=== PATIENT | male | born 1975 | race Caucasian/White ===

== ENCOUNTER 2020-09-07 19:25 | Outpatient (REF) | payer OTHER, SELFPAY ==
--- NOTE | 2020-09-07 19:45 | MR_ITS ---
MR CERVICAL SPINE WITHOUT IV CONTRAST CLINICAL INFORMATION: Strain injury. Persisting weakness/numbness. COMPARISON: Cervical spine radiographs 08/15/2020. TECHNIQUE: MRI of the cervical spine was obtained using routine sequences without contrast. FINDINGS: Cervical alignment is maintained. The vertebral body heights are preserved. There is moderate disc volume loss at C4-C5 and C5-C6 and there is mild disc volume loss at C6-C7. Modic type I endplate signal changes at C4-C5, C5-C6, and C6-C7. There is no additional bone marrow edema. Craniocervical junction is unremarkable. The partially imaged intracranial compartment is unremarkable. Fatty marrow conversion throughout the C4, C5, C6, and upper aspect of the C7 vertebral bodies. Major ligaments are intact. C2-C3: Posterior disc contour is normal. No central canal stenosis and no foraminal stenosis. C3-C4: Disc osteophyte mildly narrows the central canal. Uncovertebral joint hypertrophy and hypertrophic facet arthropathy result in moderate left foraminal stenosis. C4-C5: Disc osteophyte mildly narrows the central canal. Uncovertebral joint hypertrophy and hypertrophic facet arthropathy result in moderate to severe left and moderate right foraminal stenosis. C5-C6: Disc osteophyte and ligamentum flavum thickening result in mild central canal stenosis. Uncovertebral joint hypertrophy and hypertrophic facet arthropathy result in severe right and mild left foraminal stenosis. C6-C7: Disc osteophyte mildly narrows the central canal. Uncovertebral joint hypertrophy and hypertrophic facet arthropathy result in moderate to severe right-sided foraminal stenosis. C7-T1: Posterior disc contour is normal. Uncovertebral joint hypertrophy and hypertrophic facet arthropathy result in mild to moderate left-sided foraminal stenosis. IMPRESSION: Multilevel cervical spondylosis. Multifactorial degenerative changes result in varying degrees of moderate to severe foraminal stenosis throughout the cervical spine as described. No severe central canal stenosis.
== END 2020-09-07 19:26 | disposition home or self-care (01) ==
LOC: HO.MRI 19:25
PROVIDERS: Visit Provider Internal Medicine
DX: S16.1XXA Strain of muscle, fascia and tendon at neck level, initial encounter (principal); R53.1 Weakness; R20.0 Anesthesia of skin; X58.XXXA Exposure to other specified factors, initial encounter; Y93.9 Activity, unspecified; Y92.9 Unspecified place or not applicable; Y99.9 Unspecified external cause status
CPT/HCPCS: 72141

== ENCOUNTER → 2020-09-09 15:03 | Outpatient (BNVA) | payer OTHER, SELFPAY | PROVIDERS: Visit Provider Physician Assistant Medical | DX: Z13.89 Encounter for screening for other disorder (principal) | CPT/HCPCS: 99213 ==

== ENCOUNTER → 2020-09-16 15:22 | Outpatient (BNVA) | payer OTHER, SELFPAY | PROVIDERS: Visit Provider Physician Assistant Medical | DX: Z13.89 Encounter for screening for other disorder (principal) | CPT/HCPCS: 99213 ==

== ENCOUNTER → 2020-09-30 13:31 | Outpatient (BNVA) | payer OTHER, SELFPAY | PROVIDERS: Visit Provider Physician Assistant Medical | DX: S29.012D Strain of muscle and tendon of back wall of thorax, subsequent encounter (principal); X58.XXXD Exposure to other specified factors, subsequent encounter | CPT/HCPCS: 99213 ==

== ENCOUNTER → 2020-10-12 13:49 | Outpatient (BNVA) | payer OTHER, SELFPAY | PROVIDERS: Visit Provider Physician Assistant Medical | DX: M54.2 Cervicalgia (principal); G56.22 Lesion of ulnar nerve, left upper limb | CPT/HCPCS: 99213 ==

== ENCOUNTER → 2020-10-31 14:49 | Outpatient (BNVA) | payer OTHER, SELFPAY | PROVIDERS: Visit Provider Physician Assistant | DX: Z76.89 Persons encountering health services in other specified circumstances (principal) ==

== ENCOUNTER → 2020-11-02 14:53 | Outpatient (BNVA) | payer OTHER, SELFPAY | PROVIDERS: Visit Provider Physician Assistant Medical | DX: M54.2 Cervicalgia (principal); G56.22 Lesion of ulnar nerve, left upper limb | CPT/HCPCS: 99213 ==